=== PATIENT | female | born 1985 | race Two or more races ===

== ENCOUNTER 2021-02-19 16:24 | Observation (INO) | payer MEDICAID ==
[~2021-02-19] VITALS: Ht 152.4 cm; Wt 65.8 kg
[2021-02-19] MEDS ORDERED: PREN-96 PO (17:04)
[2021-02-19] MEDS ORDERED: LACTATED RINGER'S 1,000 ML IV ONE (18:45)
[2021-02-19] MEDS ORDERED: NIFEdipine 10 MG CAP PO ONE (18:45)
[2021-02-19] MEDS ORDERED: NIFEdipine 10 MG CAP ONE (19:01)
[2021-02-19] MEDS ORDERED: TERBUTALINE SULFATE 1 MG/ML 1ML VIAL SC ONE ×2 (20:30→20:35)
[2021-02-19] MEDS ORDERED: NIF10C PO (23:50)
== END 2021-02-20 00:02 | disposition home or self-care (01) ==
LOC: LDRP 16:24
PROVIDERS: ADMIT Specialist; ATTEND Specialist
DX: O60.03 Preterm labor without delivery, third trimester (principal); O99.513 Diseases of the respiratory system complicating pregnancy, third trimester; R09.81 Nasal congestion; Z3A.35 35 weeks gestation of pregnancy
CPT/HCPCS: 59025; 81002; 96360; 96361; 96372; G0378; J3105

== ENCOUNTER 2021-03-28 22:04 | Observation (INO) | payer MEDICAID ==
[~2021-03-28] VITALS: Ht 152.4 cm; Wt 71.2 kg
[~2021-03-28 22:04] MED LIST: NIF10C PO; PREN-96 PO
[2021-03-28] MEDS ORDERED: TERBUTALINE SULFATE 1 MG/ML 1ML VIAL SC SCH (22:45)
== END 2021-03-29 | disposition home or self-care (01) ==
LOC: LDRP 22:04
PROVIDERS: ADMIT Obstetrics & Gynecology; ATTEND Obstetrics & Gynecology
DX: O62.9 Abnormality of forces of labor, unspecified (principal); Z3A.38 38 weeks gestation of pregnancy
CPT/HCPCS: 59025; 81002; 96372; G0378; J3105

== ENCOUNTER 2021-03-30 03:46 | Inpatient (IN) | payer MEDICAID ==
[2021-03-30] VITALS (15 sets, daily range): BP systolic 94–145; BP diastolic 42–84
[~2021-03-30] VITALS: Ht 152.4 cm; Wt 68.0 kg
[2021-03-30] MEDS ORDERED: LACTATED RINGER'S 1,000 ML IV ONE (04:00)
[2021-03-30] MEDS ORDERED: ceFAZolin 1GM/50ML 50 ML IV ONE (04:00)
[2021-03-30 04:59] LABS: Basophils # (auto) 0 10 ^3/uL (0-0.2); Basophils % (auto) 0.3 % (0.0-2.0); Eosinophils # (auto) 0.1 10 ^3/uL (0-0.8); Hematocrit 37.4 % (36.0-46.0); Hemoglobin 12.8 g/dL (12.2-16.2); Lymphocytes # (auto) 1.4 10 ^3/uL (0.4-5.4); Lymphocytes % (auto) 21.3 % (10.0-50.0); Mean Corpuscular Hemoglobin 29.8 pg (28.0-32.0); Mean Corpuscular Hgb Conc. 34.3 g/dL (32.0-36.0); Mean Corpuscular Volume 86.8 fL (80.0-100.0); Monocytes # (auto) 0.7 10 ^3/uL (0-1.3); Monocytes % (auto) 10.2 % (0.0-12.0); Neutrophils # (auto) 4.5 10 ^3/uL (1.6-8.6); Neutrophils % (auto) 67.2 % (37.0-80.0); Nucleated Red Blood Cells % 0.1 %; Red Blood Cells 4.31 10^6/uL (4.0-5.20); Red Cell Distribution Width 14.9 % (11.8-14.3); White Blood Cell 6.7 10^3/uL (4.4-10.8)
[2021-03-30 05:20] LABS: INR 0.91 (0.9-1.15); Partial Thromboplastin Time 24.6 sec (23.0-31.2)
[2021-03-30 05:24] LABS: Albumin 2.6 g/dL (3.4-5.0); Alcohol, Urine < 3.0 mg/dL (0-10); Amphetamine Screen, Urine NEGATIVE (NEGATIVE); BUN/Creatinine Ratio 24.3; Barbiturate Scree,Urine NEGATIVE (NEGATIVE); Benzodiazephine Screen, Urine NEGATIVE (NEGATIVE); Calcium 8.6 mg/dL (8.5-10.1); Cannabinoid Screen, Urine NEGATIVE (NEGATIVE); Cocaine Screen, Urine NEGATIVE (NEGATIVE); Opiate Scree,Urine NEGATIVE (NEGATIVE); Phencyclidine Screen, Urine NEGATIVE (NEGATIVE); Potassium 4.2 mmol/L (3.5-5.1)
[2021-03-30 05:27] LABS: Bilirubin, Total 0.2 mg/dL (0.2-1.0); Total Protein 6.6 g/dL (6.4-8.2)
[2021-03-30 05:36] LABS: Urine Bacteria FEW /hpf (None Seen); Urine Blood Negative /uL (Negative); Urine Specific Gravity 1.013 (1.001-1.035); Urine WBC 2 /hpf (0 - 5)
[2021-03-30] MEDS ORDERED: MORPHINE SULF PF 2 MG/2 ML SYRG ONE (07:32)
[2021-03-30] MEDS ORDERED: DexAMETHasone SOD PHOS 10MG/1ML VIAL INJ ONE (07:33)
[2021-03-30] MEDS ORDERED: METOCLOPRAMIDE HCL 5MG/ml INJ 2ml VIAL ONE (07:33)
[2021-03-30] MEDS ORDERED: ePHEDrine SULFATE 50 MG/ML AMP ONE (07:33)
[2021-03-30] MEDS ORDERED: ONDANSETRON HCL 4 MG/2 ML VIAL ONE (07:33)
[2021-03-30] MEDS ORDERED: oxyTOCIN 10 UNIT/ML 10ML VIAL ONE (07:33)
[2021-03-30] MEDS ORDERED: MIDAZOLAM HCL 2MG/2ML 2ml VIAL (1mg/ml) ONE (07:52)
[2021-03-30] MEDS ORDERED: fentaNYL CITRATE 100 MCG/2 ML VL ONE (07:58)
[2021-03-30] MEDS ORDERED: MORPHINE SULFATE 4 MG/ML SYR/VIAL IV PRN (08:15)
[2021-03-30] MEDS ORDERED: LACT. RINGERS/OXYTOCIN 20UNITS 1,000 ML IV ONE (08:15)
[2021-03-30] MEDS ORDERED: ceFAZolin 1GM/50ML 50 ML IV SCH ×2 (08:15→12:00)
[2021-03-30] MEDS ORDERED: ONDANSETRON HCL 4 MG/2 ML VIAL IV PRN ×2 (08:15→08:45)
[2021-03-30] MEDS ORDERED: DexAMETHasone SOD PHOS 10MG/1ML VIAL INJ IV PRN (08:45)
[2021-03-30] MEDS ORDERED: diphenhdrAMINE HCL 50 MG/1 ML VL IV PRN (08:45)
[2021-03-30] MEDS ORDERED: NALOXONE HCL 0.4 MG/ML VIAL IV PRN (08:45)
[2021-03-30] MEDS ORDERED: NALBUPHINE HCL 10 MG/1ml INJECTION SUBCUT ONE (08:45)
[2021-03-30] MEDS ORDERED: KETOROLAC TROMETH 30 MG/ML 1ML VIAL IV PRN (08:45)
[2021-03-30] MEDS ORDERED: HYDROmorphone HCL 2 MG/ML VL IV PRN (08:45)
[2021-03-30] MEDS: LACTATED RINGER'S 1,000 ML IV SCH ×2 (09:45→18:46)
[2021-03-30] MEDS ORDERED: ACETAMINOPHEN IV 1000 MG/100ML (10MG/ML) IV ONE (10:45)
[2021-03-30] MEDS: ceFAZolin 1GM/50ML 50 ML IV SCH ×2 (15:24→23:17)
[2021-03-30 22:12] LABS: Basophils # (auto) 0 10 ^3/uL (0-0.2); Basophils % (auto) 0.2 % (0.0-2.0); Eosinophils # (auto) 0 10 ^3/uL (0-0.8); Eosinophils % (auto) 0.1 % (0.0-7.0); Hematocrit 35.1 % (36.0-46.0); Hemoglobin 11.9 g/dL (12.2-16.2); Lymphocytes # (auto) 1.4 10 ^3/uL (0.4-5.4); Lymphocytes % (auto) 12.2 % (10.0-50.0); Mean Corpuscular Hemoglobin 29.1 pg (28.0-32.0); Mean Corpuscular Hgb Conc. 33.9 g/dL (32.0-36.0); Mean Corpuscular Volume 85.9 fL (80.0-100.0); Monocytes # (auto) 0.9 10 ^3/uL (0-1.3); Monocytes % (auto) 8.3 % (0.0-12.0); Neutrophils # (auto) 8.9 10 ^3/uL (1.6-8.6); Neutrophils % (auto) 79.2 % (37.0-80.0); Nucleated Red Blood Cells % 0.1 %; Red Blood Cells 4.09 10^6/uL (4.0-5.20); White Blood Cell 11.3 10^3/uL (4.4-10.8)
[2021-03-31] VITALS (11 sets, daily range): BP systolic 96–128; BP diastolic 53–72
[2021-03-31 06:06] LABS: RPR Non Reactive (Non Reactive)
[2021-03-31] MEDS: ceFAZolin 1GM/50ML 50 ML IV SCH (06:39)
[2021-03-31 07:13] LABS: Basophils # (auto) 0 10 ^3/uL (0-0.2); Basophils % (auto) 0.3 % (0.0-2.0); Eosinophils # (auto) 0 10 ^3/uL (0-0.8); Eosinophils % (auto) 0.4 % (0.0-7.0); Hematocrit 33.3 % (36.0-46.0); Hemoglobin 11.5 g/dL (12.2-16.2); Lymphocytes # (auto) 1.5 10 ^3/uL (0.4-5.4); Lymphocytes % (auto) 16.9 % (10.0-50.0); Mean Corpuscular Hemoglobin 29.9 pg (28.0-32.0); Mean Corpuscular Hgb Conc. 34.5 g/dL (32.0-36.0); Mean Corpuscular Volume 86.5 fL (80.0-100.0); Monocytes # (auto) 0.8 10 ^3/uL (0-1.3); Monocytes % (auto) 8.6 % (0.0-12.0); Neutrophils # (auto) 6.7 10 ^3/uL (1.6-8.6); Neutrophils % (auto) 73.8 % (37.0-80.0); Red Blood Cells 3.86 10^6/uL (4.0-5.20); Red Cell Distribution Width 15.1 % (11.8-14.3); White Blood Cell 9.1 10^3/uL (4.4-10.8)
[2021-03-31] MEDS ORDERED: D5W/LACTATED RINGERS 1,000 ML IV SCH (08:30)
[2021-03-31] MEDS ORDERED: BISACODYL 10 MG RECT SUPP PR PRN (08:30)
[2021-03-31] MEDS ORDERED: HYDROcodone-ACET 5/325MG TAB PO PRN (08:30)
[2021-03-31] MEDS ORDERED: LACTATED RINGER'S 1,000 ML IV SCH (08:30)
[2021-03-31] MEDS: DOCUSATE SOD 100 MG CAP PO SCH ×2 (09:05→22:55)
[2021-03-31] MEDS: HYDROcodone-ACET 5/325MG TAB PO PRN ×2 (09:05→16:17)
[2021-03-31] MEDS: DOCUSATE CALCIUM 240 MG CAP PO SCH (09:05)
[2021-03-31] MEDS: FERROUS SULFATE 325mg EC TAB PO SCH ×2 (09:05→22:56)
[2021-03-31] MEDS: SIMETHICONE 80 MG CHEWABLE TABLET PO SCH ×3 (11:44→22:55)
[2021-03-31] MEDS: IBUPROFEN 800 MG TAB PO PRN ×2 (11:44→20:38)
[2021-04-01] MEDS: HYDROcodone-ACET 5/325MG TAB PO PRN ×2 (00:41→08:31)
[2021-04-01 03:00] VITALS: BP 107/63
[2021-04-01 07:00] VITALS: BP 111/61
[2021-04-01] MEDS: SIMETHICONE 80 MG CHEWABLE TABLET PO SCH ×4 (08:30→21:21)
[2021-04-01] MEDS: DOCUSATE CALCIUM 240 MG CAP PO SCH (10:35)
[2021-04-01] MEDS: DOCUSATE SOD 100 MG CAP PO SCH ×2 (10:36→21:22)
[2021-04-01] MEDS: FERROUS SULFATE 325mg EC TAB PO SCH ×2 (10:36→21:21)
[2021-04-01 11:00] VITALS: BP 106/58
[2021-04-01] MEDS: IBUPROFEN 800 MG TAB PO PRN ×2 (12:44→21:22)
[2021-04-01] MEDS ORDERED: HYDR-4902 PO (14:38)
[2021-04-01] MEDS ORDERED: DOCU-94 PO (14:39)
[2021-04-01] MEDS ORDERED: IBUP600T27 PO (14:39)
[2021-04-01 15:00] VITALS: BP 125/72
[2021-04-01 19:00] VITALS: BP 125/83
[2021-04-01 23:00] VITALS: BP 108/70
[2021-04-02 03:00] VITALS: BP 117/70
[2021-04-02] MEDS: SIMETHICONE 80 MG CHEWABLE TABLET PO SCH (05:42)
[2021-04-02] MEDS: HYDROcodone-ACET 5/325MG TAB PO PRN (05:48)
[2021-04-02 07:00] VITALS: BP 112/69
== END 2021-04-02 09:50 | disposition home or self-care (01) | DRG 540 ==
LOC: LDRP 03:46
PROVIDERS: ADMIT Specialist; ATTEND Specialist
PROC: 0UL70CZ Occlusion of Bilateral Fallopian Tubes with Extraluminal Device, Open Approach (ICD-10-PCS; 2021-03-30)
PROC: 10D00Z1 Extraction of Products of Conception, Low, Open Approach (ICD-10-PCS; principal; 2021-03-30 07:22)
DX: O34.211 Maternal care for low transverse scar from previous cesarean delivery (principal); O69.81X0 Labor and delivery complicated by cord around neck, without compression, not applicable or unspecified; Z30.2 Encounter for sterilization; Z37.0 Single live birth; Z3A.38 38 weeks gestation of pregnancy
CPT/HCPCS: 36415; 59025; 80053; 80307; 81001; 81002; 85025; 85610; 85730; 86592; 86850; 86900; 86901; 96360; 96361; 96365; 96366; 96374; G0378; J0690; J1100; J2250; J2405; J2590